=== PATIENT | female | born 1965 | race Caucasian/White ===

== ENCOUNTER 2020-11-02 11:55 | Day surgery (SDC) | payer OTHER ==
[~2020-11-02] VITALS: Ht 160 cm; Wt 76.0 kg
== END 2020-11-02 14:00 | disposition home or self-care (01) ==
LOC: ORSCSDS 11:55
PROVIDERS: Internal Medicine Gastroenterology
PROC: 0DBM8ZX Excision of Descending Colon, Via Natural or Artificial Opening Endoscopic, Diagnostic (ICD-10-PCS; principal; 2020-11-02 13:00)
DX: K62.5 Hemorrhage of anus and rectum (principal); K63.5 Polyp of colon; E66.8 Other obesity; K64.8 Other hemorrhoids; K64.4 Residual hemorrhoidal skin tags; K57.30 Diverticulosis of large intestine without perforation or abscess without bleeding; Z68.30 Body mass index [BMI] 30.0-30.9, adult; Z87.891 Personal history of nicotine dependence
CPT/HCPCS: 88305; J2704; J7120

== ENCOUNTER 2020-12-13 06:13 | Day surgery (SDC) | payer OTHER ==
[~2020-12-13] VITALS: Ht 160 cm; Wt 79.1 kg
[~2020-12-13 06:13] MED LIST: MULVITA PO; Milk Thistle175 M1 PO; St. John's Wor300 M1 PO; TOCO1000 PO; VITAMIN D310 MC4 PO; Vitamin C100 M1 PO; [UNRECOGNIZED DRUG - OTHER] PO
--- NOTE | 2020-12-13 06:51 | NUR ---
History, Chart, Medications and Allergies reviewed before start of procedure. Lungs clear T/O to Auscultation. Patient confirms NPO status and agrees with scheduled surgery. Pre-Op teaching done. Pt verbalizes understanding. Patient States Post-Procedure ride home has been arranged. Patient reports completing Chlorhexadine shower X2 prior to admission to hospital.
--- NOTE | 2020-12-13 09:30 | NUR ---
Patient States Post-Procedure ride home has been arranged. Discharge instructions reviewed with patient. Patient verbalizes understanding. Copy given to patient to take home.
--- NOTE | 2020-12-13 09:38 | NUR ---
PT HAS TOLERATED PO FLUIDS AND FOOD. Discharged via wheelchair to private car for ride home.
== END 2020-12-13 09:39 | disposition home or self-care (01) ==
LOC: ORSCMMR 06:13 → ORD 07:30 → ORSCMMR 09:39
PROVIDERS: Surgery
PROC: 06BY0ZC Excision of Hemorrhoidal Plexus, Open Approach (ICD-10-PCS; principal; 2020-12-13 07:30)
DX: K64.2 Third degree hemorrhoids (principal); Z87.891 Personal history of nicotine dependence
CPT/HCPCS: 88304; A9270; J1100; J1885; J2250; J2405; J2704; J2710; J3010; J7120